=== PATIENT | male | born 1975 | race Two or more races ===

== ENCOUNTER 2017-02-17 07:02 | Emergency (ER) | payer MEDICAID, OTHER ==
[~2017-02-17] VITALS: Ht 160 cm; Wt 90.7 kg
[~2017-02-17 07:02] MED LIST: ALBUTEROL SULF8.5 GM INH; PREDNISONE20 MG ORAL; PREDNISONE20 MG PO; zithromax
[2017-02-17] MEDS ORDERED: Lidocaine 2% 20mg/ml/Epi 0.005mg/ml 20ml vial INJ ONE (07:15)
[2017-02-17 07:22] VITALS: BP 113/77
--- NOTE | 2017-02-17 07:27 | Emergency Room Report ---
History of Present Illness General Chief Complaint: Laceration Source: Patient Present Illness HPI Patient is a 41-year-old male who presented after having increased to have pain to his left hand. Patient had prior history of diabetes. Patient stated that he had been using a universal grinder tool while cutting a pipe. He subsequently cut his left hand dorsum. He denies any numbness or tingling distally. The had injury approximately 15 minutes prior to arrival. He is right-hand dominant. He denies other injuries or locations of pain. Allergies: Coded Allergies: No Known Allergies (Unverified , 06/29/12) Patient History Past Medical History: see triage record, DM Reviewed Nursing Documentation: PMH: Agreed, PSxH: Agreed Nursing Documentation-PMH Past Medical History: No History, Except For Hx Diabetes: Yes Review of Systems All Other Systems: negative except mentioned in HPI Physical Exam Vital Signs Date Time Temp Pulse Resp B/P Pulse Ox O2 Delivery O2 Flow Rate FiO2 02/17/17 07:06 97.3 82 18 113/77 95 Room Air General Appearance: well appearing, no apparent distress Head: normocephalic, atraumatic ENT: hearing grossly normal, normal voice Neck: full range of motion, supple Respiratory: no respiratory distress, speaking full sentences Cardiovascular #1: normal inspection, normal peripheral pulses, regular rate, rhythm, no edema Gastrointestinal: normal inspection Musculoskeletal: no calf tenderness Neurologic: normal inspection, alert, oriented x3, responsive, normal gait Psychiatric: mood/affect normal Skin: no rash, laceration - 3cm / 1cm to dorsum of hand Procedures Laceration/Wound Repair Laceration/Wound Repair : Consent: Verbal Wound Location: upper extremity Wound's Depth, Shape: linear Wound Length (cm): 3 Wound Explored: contaminated Betadine Prep?: Yes Anesthesia: Lidocaine w/ Epi Volume Anesthetic (ccs): 4 Wound Debrided: moderate Wound Repaired With: sutures Suture Size/Type: 5:0 Sterile Dressing Applied?: Yes Patient Tolerated: Well Complications: None Medical Decision Making Diagnostic Impression: Primary Impression: Laceration ER Course Patient presented for laceration. Differential diagnoses included foreign body , nerve injury, arterial injury among others. Patient's benign exam and does not appear to require any laboratory testing at this time. Patient wound was irrigated. The wound is closed with suture. The patient is advised to follow up with primary care doctor in 3 days for wound check. Patient was advised suture removal in 10-14 days . Patient is advised to return if any worsening condition or if any changes in status that are concerning. Chest X-Ray Diagnostic Results Chest X-Ray Ordered: No Other X-Ray Diagnostic Results X-Ray ordered: left hand # of Views/Limited Vs Complete: 3 View Interpretation: no fractures, no dislocation, no soft tissue swelling, other - no foreign body Indication: Pain Impression: No acute disease Date Electronically Signed: Feb 17, 2017 Time Electronically Signed: 08:16 Electronically Signed by: Eliazar Bolden Last Vital Signs Date Time Temp Pulse Resp B/P Pulse Ox O2 Delivery O2 Flow Rate FiO2 02/17/17 07:06 97.3 82 18 113/77 95 Room Air Status: improved Disposition: HOME, SELF-CARE Condition: Stable Scripts Ibuprofen* (MOTRIN*) 600 Mg Tablet 600 MG ORAL Q8H Y for For Pain, #30 TAB 0 Refills Prov: Eliazar Bolden 02/17/17 Bacitracin Zinc* (BACITRACIN ZINC*) 1 Each Packet 1 APPLIC TOPIC THREE TIMES A DAY, #30 PACKET Prov: Eliazar Bolden 02/17/17 Eliazar Bolden Feb 17, 2017 07:26
[2017-02-17] MEDS ORDERED: IBUPROFEN600 MG ORAL (08:12)
[2017-02-17] MEDS ORDERED: Bacitracin Oint UD TOPIC ONE ×2 (08:12→08:15)
[2017-02-17] MEDS ORDERED: BACITRACIN ZIN1 EACH TOPIC (08:12)
[2017-02-17 08:27] VITALS: BP 119/73
--- NOTE | 2017-02-17 23:56 | Diagnostic Imaging Report ---
Indication: Pain Comparison: None Findings: 3 views left hand obtained No acute fracture or malalignment identified. Bone mineralization is normal. Soft tissues are unremarkable. Impression: Negative examination
== END 2017-02-17 08:28 | disposition home or self-care (01) ==
LOC: EMR 07:21
DX: S61.412A Laceration without foreign body of left hand, initial encounter (principal); E11.9 Type 2 diabetes mellitus without complications; W26.9XXA Contact with unspecified sharp object(s), initial encounter; Y93.9 Activity, unspecified; Y92.9 Unspecified place or not applicable
CPT/HCPCS: 12002; 73130; 99284; Z7502